=== PATIENT | female | born 1965 | race Caucasian/White ===

== ENCOUNTER → 2018-07-11 | Outpatient (REF) | payer BC ==
[~2018-07-11] MED LIST: AMLO10TA5 PO; AUGM875T28 PO; CARV25TA PO; GLIP1TAB11 PO; LISI40TA PO; SPIR-10 PO; TOUJ1.2I SQ; VITA-182 PO
[2018-07-11 18:24] LABS: URINE TOTAL PROTEIN 51.3 MG/DL (0-12)
[2018-07-11 18:29] LABS: TOTAL PROTEIN 7.8 GM/DL (6.4-8.2)
[2018-07-12 11:32] LABS: ALBUMIN 4.66 GM/DL (3.29-5.55); ALBUMIN % 59.7 % (55.8-66.1); ALPHA-1-GLOBULIN % 4.8 % (2.9-4.9); ALPHA-1-GLOBULINS 0.37 GM/DL (0.17-0.41); ALPHA-2-GLOBULINS 0.87 GM/DL (0.42-0.99); ALPHA-2-GLOBULINS % 11.2 % (7.1-11.8); BETA-1-GLOBULINS 0.55 GM/DL (0.28-0.60); BETA-2-GLOBULINS 0.41 GM/DL (0.19-0.55); BETA-2-GLOBULINS % 5.2 % (3.2-6.5); GAMMA GLOBULIN % 12.1 % (11.1-18.8); GAMMA GLOBULINS 0.94 GM/DL (0.65-1.58)
[2018-07-17 00:06] LABS: ANGIOTENSIN 1 CONVERTING ENZYM 6 U/L (14-82); FREE KAPPA LIGHT CHAINS SERUM 39.2 mg/L (3.3-19.4); FREE LAMBDA LIGHT CHAINS SERUM 25.6 mg/L (5.7-26.3); KAPPA/LAMBDA RATIO SERUM 1.53 (0.26-1.65); VITAMIN D 1,25 DIHYDROXY 35.1 pg/mL (19.9-79.3)
[2018-07-19 13:25] LABS: UPEP INTERPRETATION NO M-SPIKE NOTED; URINE VOLUME RANDOM ML
[2018-07-20 00:06] LABS: PTH RELATED PEPTIDE < 2.0 pmol/L (.)
== END ==
LOC: M LAB REF 17:14
PROVIDERS: ATTEND Internal Medicine Nephrology
DX: R80.9 Proteinuria, unspecified (principal); E83.52 Hypercalcemia

== ENCOUNTER → 2018-12-20 | Outpatient (CLI) | payer BC ==
--- NOTE | 2018-12-21 14:56 | REP ---
Clinical: Chronic renal disease stage III. Technique: Axial noncontrast images from the thoracic inlet to the upper abdomen with coronal and sagittal re-formations. Comparison: None. Findings: Bilateral lung gaxiola are relatively well aerated, symmetric and essentially clear. There is a small chronic appearing subpleural area of scarring along the right lateral mid lung zone (image [id number]). No consolidation, significant nodule, or mass lesion. No pleural effusion. No pneumothorax. No obvious adenopathy. Tracheobronchial tree is patent. Mediastinum demonstrates atherosclerotic changes to the coronary arteries. No cardiomegaly or pericardial effusion. Thoracic aorta is normal in caliber. Pacemaker noted. Surrounding musculoskeletal structures are intact. Limited upper abdomen demonstrates a nonspecific left adrenal mass measuring 5.5 cm maximal diameter which requires further investigation. 2.5 cm right renal hypodensity likely representing cyst. Impression: 1. No acute mediastinal or pleuroparenchymal process. 2. 5.5 cm nonspecific left adrenal mass requires further investigation. Consider pre and postcontrast CT or MRI. Electronically Signed by Emanuel Bang MD 12/21/2018 02:47 P
== END ==
LOC: M RAD 08:28
PROVIDERS: ATTEND Internal Medicine Nephrology
DX: N18.3 Chronic kidney disease, stage 3 (moderate) (principal)

== ENCOUNTER → 2019-01-01 | Outpatient (CLI) | payer BC ==
[~2019-01-01] MED LIST changes: +ISOVUE-370 76% 100ML VIAL (Q9967) As Ordered ONE
--- NOTE | 2019-01-02 09:09 | REP ---
Clinical: Adrenal mass. Technique: Axial precontrast, contrast enhanced, and delayed images of the abdomen using 100 ml Isovue 370 intravenous contrast material with coronal and sagittal re-formations. Findings: There is a 5.3 cm left adrenal mass which exhibits soft tissue density on precontrast images and enhancement to 120+ Hounsfield units on portal venous phase. While 15-minute delayed images demonstrate washout characteristics suggesting adenoma, the lesion's size and portal venous enhancement cannot definitively diagnosis as atypical adenoma. Liver, spleen, pancreas, gallbladder, right adrenal gland and kidneys are relatively normal. Simple renal cyst in the upper pole right kidney is identified. Visualized enteric system is unremarkable. No ascites. No free air. No adenopathy. Impression: 1. 5.3 cm left adrenal mass which exhibits atypical characteristics and cannot definitively be diagnosed as adenoma. Electronically Signed by Emanuel Bang MD 01/02/2019 09:01 A
== END ==
LOC: M RAD 15:24
PROVIDERS: ATTEND Internal Medicine Nephrology
DX: N18.3 Chronic kidney disease, stage 3 (moderate) (principal); E83.52 Hypercalcemia
CPT/HCPCS: 74170; Q9967

== ENCOUNTER → 2019-01-28 | Outpatient (REF) | payer BC ==
[~2019-01-28] MED LIST changes: -ISOVUE-370 76% 100ML VIAL (Q9967) As Ordered ONE
== END ==
LOC: M LAB REF 11:30
PROVIDERS: ATTEND Surgery
DX: E27.8 Other specified disorders of adrenal gland (principal)

== ENCOUNTER → 2019-01-29 | Outpatient (CLI) | payer BC | LOC: M LAB 08:49 | PROVIDERS: ATTEND Surgery | DX: E27.8 Other specified disorders of adrenal gland (principal) ==

== ENCOUNTER → 2019-02-04 | Outpatient (REF) | payer BC ==
[2019-02-04 12:32] LABS: CALCIUM, URINE 8.6 MG/DL; CREATININE, URINE 36.4 MG/DL
== END ==
LOC: M LAB REF 11:16
PROVIDERS: ATTEND Surgery
DX: E83.52 Hypercalcemia (principal)

== ENCOUNTER → 2019-03-13 | Outpatient (CLI) | payer BC ==
[2019-03-13 11:42] LABS: CREATININE FOR GFR 1.23 MG/DL (0.55-1.30); GLOMERULAR FILTRATION RATE 48.4 (>51)
== END ==
LOC: M LAB 10:38
PROVIDERS: ATTEND Surgery
DX: Z00.00 Encounter for general adult medical examination without abnormal findings (principal)

== ENCOUNTER 2019-04-10 09:10 | Emergency (ER) | payer BC ==
[~2019-04-10] VITALS: Ht 170.2 cm; Wt 82.8 kg
[2019-04-10] MEDS ORDERED: AMLO5TAB6 (09:56)
[2019-04-10] MEDS ORDERED: METH1TAB40 (09:56)
[2019-04-10] MEDS ORDERED: GLIP5TAB20 PO (09:56)
[2019-04-10] MEDS ORDERED: HUMA75IN2 SC ×2 (09:56→12:37)
[2019-04-10] MEDS ORDERED: CARV12.5 PO (09:56)
[2019-04-10] MEDS ORDERED: ATOR40TA75 PO (09:56)
--- NOTE | 2019-04-10 10:05 | REP ---
Clinical: altered mental status . Comparison: None . Findings: The ventricles, sulci, and cisterns are normal in position and appearance. Galarza-white differentiation is maintained. No acute intracranial hemorrhage, mass/mass effect, pathology or trauma/injury. No evidence for acute infarction. No extra-axial fluid collection. Calvarium is intact. Paranasal sinuses and mastoid air cells are clear. Impression: Normal noncontrast head CT. No evidence for acute intracranial pathology or trauma/injury. Electronically Signed by Emanuel Bang MD 04/10/2019 09:57 A
[2019-04-10 10:08] LABS: BASO # 0.1 10^3/uL (0.0-0.2); BASO % 0.9 % (0.0-1.0); EOS # 0.3 10^3/uL (0.0-0.5); EOS % 2.9 % (0.0-3.0); HEMATOCRIT 38.3 % (36.0-47.0); HEMOGLOBIN 12.3 g/dl (12.0-15.5); LYMPH # 1.2 10^3/uL (1.5-5.0); LYMPH % 13.1 % (24.0-44.0); MEAN CORPUSCULAR HEMOGLOBIN 29.1 pg (27.0-33.0); MEAN CORPUSCULAR HGB CONC 32.1 g/dl (32.0-36.5); MEAN CORPUSCULAR VOLUME 90.5 fl (80.0-96.0); MONO # 0.7 10^3/uL (0.0-0.8); MONO % 8.4 % (0.0-5.0); NEUTROPHILS # 6.5 10^3/uL (1.5-8.5); NEUTROPHILS % 74.5 % (36.0-66.0); PLATELET COUNT, AUTOMATED 292 10^3/uL (150-450); RED BLOOD COUNT 4.23 10^6/uL (4.00-5.40); WHITE BLOOD COUNT 8.8 10^3/uL (4.0-10.0)
[2019-04-10 10:50] LABS: ALBUMIN 3.5 GM/DL (3.2-5.2); ALT/SGPT 23 U/L (12-78); BILIRUBIN,DIRECT < 0.1 MG/DL (0.0-0.2); BILIRUBIN,TOTAL 0.3 MG/DL (0.2-1.0); BLOOD UREA NITROGEN 32 MG/DL (7-18); CALCIUM LEVEL 9.8 MG/DL (8.5-10.1); CARBON DIOXIDE LEVEL 24 MEQ/L (21-32); CHLORIDE LEVEL 108 MEQ/L (98-107); CK-MB VALUE MASS < 1.0 NG/ML (<3.6); CPK CREATINE PHOSPHOKINASE 105 U/L (26-192); CREATININE FOR GFR 1.31 MG/DL (0.55-1.30); GLUCOSE, FASTING 105 MG/DL (70-100); MB/CK RELATIVE INDEX 0.95 (< OR =4); POTASSIUM SERUM 4.8 MEQ/L (3.5-5.1); SODIUM LEVEL 140 MEQ/L (136-145); TOTAL PROTEIN 6.8 GM/DL (6.4-8.2); TROPONIN I < 0.02 NG/ML (< 0.10)
[2019-04-10] MEDS ORDERED: ONDANSETRON 4MG/2ML VIAL (J2405) IV ONE (11:00)
[2019-04-10] MEDS ORDERED: ISOVUE-370 76% 100ML VIAL (Q9967) As Ordered ONE (11:52)
--- NOTE | 2019-04-10 12:33 | REP ---
Clinical: Nausea and vomiting. Status post adrenalectomy. Technique: Axial contrast enhanced images from the lung bases to the pubic symphysis using 100 ml Isovue 370 intravenous contrast material with coronal and sagittal re-formations. Comparison: 01/01/2019. Findings: A small amount of stranding and fluid is identified in the left retroperitoneal space at the site of adrenalectomy which also happens to be adjacent to the pancreatic body/tail. The pancreas itself appears normal but a mild reactive pancreatitis cannot be excluded and may warrant correlation with laboratory values. Liver, spleen, gallbladder, right adrenal gland and bilateral kidneys are relatively normal / stable. Incidental simple benign right renal cyst is unchanged. The enteric system is without obstruction or acute inflammatory process. Normal terminal ileum and appendix are identified in the right lower quadrant. Pelvis demonstrates normal bladder and age-appropriate uterus/adnexa. Fat containing midline ventral umbilical hernia measures 7.6 cm via a defect through the rectus sheath measuring approximately 2.1 cm. No ascites. No free air. No adenopathy. Abdominal aorta and vasculature normal. Musculoskeletal structures are intact. Impression: 1. Mild likely normal postsurgical changes at the state of prior left adrenalectomy as described above. Correlation is recommended. 2. Stable simple right renal cyst. 3. 7.6 cm fat containing periumbilical hernia unchanged. Electronically Signed by Emanuel Bang MD 04/10/2019 12:24 P
[2019-04-10] MEDS ORDERED: ONDA4TAB6 PO (16:10)
[2019-04-10 16:15] VITALS: BP 159/89
--- NOTE | 2019-04-10 20:13 | ECGEPIP ---
[facility] - ED Test Date: 2019-04-10 Pat Name: DEV HAILE Department: Room: - Gender: Female Physician Chief Of Pathology: JEREMIAH : 1965 Requested By: Dudley Edmondson Order Number: [id number] Reading MD: Jessica Trevino Measurements Intervals [place] Rate: 75 P: 62 IN: 167 QRS: 10 QRSD: 80 T: 29 QT: 387 QTc: 434 Interpretive Statements SINUS RHYTHM PROBABLE INFERIOR MYOCARDIAL INFARCTION, PROBABLY OLD ANTEROSEPTAL ISCHEMIA NEEDS TO BE EXCLUDED CLINICALLY NO PRIOR Electronically Signed on 04-10-2019 20:12:42 EST by Jessica Trevino
== END 2019-04-10 16:32 | disposition home or self-care (01) ==
LOC: M ED 09:10 → CANBEDREQ 12:21 → M ED 16:32
DX: K52.9 Noninfective gastroenteritis and colitis, unspecified (principal); E11.9 Type 2 diabetes mellitus without complications; I10 Essential (primary) hypertension; F41.9 Anxiety disorder, unspecified; Z79.899 Other long term (current) drug therapy; Z79.4 Long term (current) use of insulin
CPT/HCPCS: 70450; 74177; 80048; 80076; 81001; 82550; 82553; 84443; 84484; 85025; 87086; 93005; 93041; 94760; 96374; 99285; J2405; Q9967